=== PATIENT | female | born 1955 | race Caucasian/White ===

== ENCOUNTER → 2020-02-23 | Outpatient (CLI) | payer BC ==
[2020-02-23 20:08] LABS: Bun/Creatinine Ratio 21.2 (12.0-20.0); Calcium, Blood 9.2 mg/dL (8.5-10.1); Creatinine, Blood 1.04 mg/dL (0.40-1.00); Potassium, Blood 4.2 mmol/L (3.5-5.5)
== END | disposition home or self-care (01) ==
LOC: LAB SHORT 16:41 → LAB 16:41
PROVIDERS: Hospitalist
DX: I10 Essential (primary) hypertension (principal); R73.9 Hyperglycemia, unspecified
CPT/HCPCS: 80048; 83036

== ENCOUNTER 2021-12-06 06:02 | Day surgery (SDC) | payer MEDICARE, OTHER ==
[2021-12-05 12:16] LABS: BASOPHILS ABSOLUTE AUTO 0.04 K/mm3 (0.00-0.23); BASOPHILS PERCENT AUTO 1 % (0-2); EOSINOPHILS ABSOLUTE AUTO 0.23 K/mm3 (0.00-0.68); EOSINOPHILS PERCENT AUTO 3 % (0-6); Hemoglobin 16.5 g/dL (11.5-16.0); IMMATURE GRAN ABSOLUTE AUTO 0.02 K/mm3 (0.00-0.10); IMMATURE GRAN PERCENT AUTO 0 % (0-1); LYMPHOCYTES PERCENT AUTO 19 % (21-46); MONOCYTES ABSOLUTE AUTO 0.53 K/mm3 (0.16-1.47); MONOCYTES PERCENT AUTO 6 % (4-13); Mean Corpuscular HGB 32.2 pg (26.0-34.0); Mean Corpuscular HGB Conc 34.4 g/dL (31.5-36.5); Mean Corpuscular Volume 94 fL (80-100); Mean Platelet Volume 9.4 fL (9.1-12.4); NEUTROPHILS ABSOLUTE AUTO 6.12 K/mm3 (1.96-9.15); NEUTROPHILS PERCENT AUTO 72 % (41-73); Platelet Count 220 K/mm3 (150-400); RDW Coefficient Variation 12.2 % (11.7-14.2); RDW Standard Deviation 42.5 fL (35.1-46.3); Red Blood Cell Count 5.12 M/mm3 (3.80-5.20); White Blood Cell Count 8.54 K/mm3 (4.00-11.30)
[2021-12-05 12:38] LABS: Anion Gap 8 mmol/L (6-16); Beta HCG, Quantitative, Serum 1 mIU/mL (0-3); Blood Urea Nitrogen 13 mg/dL (8-24); Bun/Creatinine Ratio 16.6 (12.0-20.0); CO2, Blood 25 mmol/L (21-32); Calcium, Blood 9.1 mg/dL (8.5-10.1); Chloride, Blood 108 mmol/L (98-108); Creatinine, Blood 0.79 mg/dL (0.40-1.00); Glomerular Filtration Rate >60 (60-); Glucose, Blood 114 mg/dL (70-99); Potassium, Blood 3.9 mmol/L (3.5-5.5); Sodium, Blood 141 mmol/L (136-145)
[~2021-12-06] VITALS: Ht 160 cm; Wt 65.9 kg
[~2021-12-06 06:02] MED LIST: CATAPRES0.1 MG PO; ESTRADIOL CREAM VAG; IBUP800 PO; METO50 PO; NIFE60ER PO; ONDA4 PO; Percocet 5-3251 EACH PO; ZESTRIL40 M1 PO
--- NOTE | 2021-12-06 08:23 | NUR ---
12/06/21 0823 Zaire Harman REMOVED BY SURGEON IN OR PRE OPERATIVELY.
--- NOTE | 2021-12-06 10:06 | NUR ---
PT INTO PACU ON ROOM AIR. PAS PLACED.PT AWAKE AT 1000 SLEEPY AFFECT.BETANCOURT REMOVED BEFORE ARRIVAL TO PACU.REPORT TO ROSARIO WILKES AT 1006.
--- NOTE | 2021-12-06 14:00 | NUR ---
DISCHARGE INSTRUCTIONS GIVEN TO PATEINT AT THIS TIME. PATIENT VERBALIZED UNDERSTANDING. IVS REMOVED, TOLERATED WELL. NO SIGNS OR SYMPTOMS ACUTE DISTRESS NOTED. PATIENT HAS AMBULATED, IS VOIDING WITH NO ISSUES, HAS NOT COMPLAINTS OF PAIN AND DENIES NEED FOR PAIN MEDS AND IS TOLERATING PO INTAKE WITH NO COMPLAINTS OF NAUSEA. AWAITING TO PICK PATIENT UP IN PRIVATE CAR.
== END 2021-12-06 14:20 | disposition home or self-care (01) ==
LOC: ORSCMMR 06:02 → SURS 10:30 → ORSCMMR 13:00
PROVIDERS: Obstetrics & Gynecology
PROC: 0UT74ZZ Resection of Bilateral Fallopian Tubes, Percutaneous Endoscopic Approach (ICD-10-PCS; principal; 2021-12-06 07:30)
PROC: 0UT94ZZ Resection of Uterus, Percutaneous Endoscopic Approach (ICD-10-PCS; principal; 2021-12-06 07:30)
PROC: 0UT24ZZ Resection of Bilateral Ovaries, Percutaneous Endoscopic Approach (ICD-10-PCS; principal; 2021-12-06 07:30)
DX: N81.2 Incomplete uterovaginal prolapse (principal); D25.2 Subserosal leiomyoma of uterus; N83.12 Corpus luteum cyst of left ovary; N83.11 Corpus luteum cyst of right ovary; I10 Essential (primary) hypertension; Z87.891 Personal history of nicotine dependence; Z79.899 Other long term (current) drug therapy
CPT/HCPCS: 36415; 80048; 84702; 84703; 85025; 86850; 86900; 86901; 88307; J0690; J1100; J1885; J2250; J2370; J2405; J2704; J3010; J7120